=== PATIENT | male | born 1930 | race Caucasian/White ===

== ENCOUNTER 2019-07-05 17:49 | Inpatient (IN) | payer BC, OTHER ==
[~2019-07-05] VITALS: Ht 154.9 cm; Wt 71.7 kg
[~2019-07-05 17:49] MED LIST: ASPI-630 PO; INSU100C4 SQ; INSU100V8 SQ; LOSA1TAB19 PO; METF500T16 PO; OMEP20CA10 PO; SIMV40TA3 PO; TAMS0.4C2 PO
[2019-07-05 18:16] LABS: BASO # 0.1 x10^3/uL (0.0-0.2); BASO % 1 % (0-3); EOS # 0.4 x10^3/uL (0.0-0.7); EOS % 3 % (0-3); HEMATOCRIT 45.5 % (39.0-53.0); HEMOGLOBIN 15.4 g/dL (13.0-17.5); LYMPH # 1.9 x10^3/uL (1.0-4.8); LYMPH % 17 % (24-48); MEAN CORPUSCULAR HEMOGLOBIN 30 pg (25-35); MEAN CORPUSCULAR HGB CONC 34 g/dL (31-37); MEAN CORPUSCULAR VOLUME 89 fL (79-100); MONO # 1.3 x10^3/uL (0.0-1.1); MONO % 11 % (0-9); NEUT # 7.7 x10^3/uL (1.8-7.7); NEUT % 68 % (31-73); PLATELET COUNT 190 x10^3/uL (140-400); RED BLOOD COUNT 5.13 x10^6/uL (4.30-5.70); RED CELL DISTRIBUTION WIDTH 15.2 % (11.5-14.5); WHITE BLOOD COUNT 11.4 x10^3/uL (4.0-11.0)
--- NOTE | 2019-07-05 18:16 | RAD ---
CT CODE STROKE HEAD WO History: Confusion starting at 1720 today, aphasia Comparison: None. Technique: Noncontrast CT imaging was performed of the head. Exposure: One or more of the following individualized dose reduction techniques were utilized for this examination: 1. Automated exposure control 2. Adjustment of the mA and/or kV according to patient size 3. Use of iterative reconstruction technique. Findings: No acute extra-axial or parenchymal hemorrhage is identified. There is no significant intra-axial mass effect, midline shift, or extra-axial fluid collection. 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 There is atherosclerotic calcification of the bilateral carotid siphons and intradural vertebral arteries. There is osec-ek-hmeoptrt lateral and mild third ventriculomegaly although there is generalized atrophy present. The mastoid air cells and the visualized paranasal sinuses are aerated. No acute calvarial abnormality is identified. Impression: 1. There is no evidence of acute intracranial hemorrhage. 2. There is multifocal low-density of the supratentorial parenchyma, nonspecific although more commonly due to chronic microvascular ischemic disease in a patient this age. 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 There is generalized supratentorial atrophy. Findings discussed with Dr. Bearden at 07/05/2019 6:10 PM. FOR INTERNAL CODING PURPOSES RESULT CODE: (C) Electronically signed by: Chong Sanchez MD (07/05/2019 6:13 PM) [facility]
[2019-07-05 18:23] LABS: CALCIUM 9.3 mg/dL (8.5-10.1); CREATININE 1.3 mg/dL (0.7-1.3); GFR 52.1; POTASSIUM 3.8 mmol/L (3.5-5.1)
[2019-07-05 18:25] LABS: PROTHROMBIN TIME PATIENT 12.8 SEC (11.7-14.0)
[2019-07-05 18:30] LABS: ALBUMIN 3.3 g/dL (3.4-5.0); ALBUMIN/GLOBULIN RATIO 0.8 (1.0-1.7); TOTAL BILIRUBIN 0.3 mg/dL (0.2-1.0); TOTAL PROTEIN 7.3 g/dL (6.4-8.2)
[2019-07-05] MEDS ORDERED: CONTRAST GIVEN. MC PRN (19:15)
--- NOTE | 2019-07-05 19:20 | PHYS DOC ---
Past Medical History Past Medical History: CAD, Diabetes-Type II, GERD, High Cholesterol, Hypertension, Kidney Stone, [place] Past Surgical History: Appendectomy, Coronary Bypass Surgery, Other Additional Past Surgical Histo: kidney stone; L Shoulder Alcohol Use: None Drug Use: None Adult General Chief Complaint Chief Complaint: ALTERED MENTAL STATUS HPI HPI Patient is a 89 year old male who presents with confusion and unable to talk. Patient states he mowed the grass and then came inside and does not remember what happened to him to open his eyes and salicylate bilateral acute and asking several questions and answered the question. Patient states he was confused and unable to talk started about 30 minutes prior to arrival to ER and she called 911. Code stroke was activated at arrival of the patient to ER patient was able to talk and his confusion was improved but did not remember the month and his age. Review of Systems Review of Systems Constitutional: Denies fever or chills [] Eyes: Denies change in visual acuity, redness, or eye pain [] HENT: Denies nasal congestion or sore throat [] Respiratory: Denies cough or shortness of breath [] Cardiovascular: No additional information not addressed in HPI [] GI: Denies abdominal pain, nausea, vomiting, bloody stools or diarrhea [] : Denies dysuria or hematuria [] Musculoskeletal: Denies back pain or joint pain [] Integument: Denies rash or skin lesions [] Neurologic: Denies headache, focal weakness or sensory changes [] Endocrine: Denies polyuria or polydipsia [] All other systems were reviewed and found to be within normal limits, except as documented in this note. Current Medications Current Medications Current Medications Medications (Trade) Dose Ordered Sig/Janiya Start Time Stop Time Status Last Admin Dose Admin Aspirin (Children'S Aspirin) 324 mg 1X ONCE 07/05/19 19:45 07/05/19 19:46 DC 07/05/19 19:44 324 MG Info (CONTRAST GIVEN -- Rx MONITORING) 1 each PRN DAILY PRN 07/05/19 19:15 07/07/19 19:14 Iohexol (Omnipaque 350 Mg/ml) 60 ml 1X ONCE 07/05/19 19:30 07/05/19 19:31 DC 07/05/19 19:13 60 ML Allergies Allergies Physical Exam Physical Exam Constitutional: Well developed, well nourished, mild distress, non-toxic appearance. [] HENT: Normocephalic, atraumatic. Eyes: PERRLA, EOMI, conjunctiva normal, no discharge. [] Neck: Normal range of motion, no tenderness, supple, no stridor. [] Cardiovascular: Tachycardia, no murmur [] Lungs & Thorax: Bilateral breath sounds clear to auscultation [] Abdomen: Bowel sounds normal, soft, no tenderness, no masses, no pulsatile masses. [] Skin: Warm, dry, no erythema, no rash. [] Back: No tenderness, no CVA tenderness. [] Extremities: No tenderness, no cyanosis, no clubbing, ROM intact, no edema. [] Neurologic: Alert and oriented X 2, no focal deficits noted, NIH-2 Psychologic: Affect normal, judgement normal, mood normal. [] Current Patient Data Vital Signs Vital Signs Date Time Temp Pulse Resp B/P (MAP) Pulse Ox O2 Delivery O2 Flow Rate FiO2 07/05/19 20:33 102 20 93 07/05/19 17:49 97.3 162/82 (108) Room Air 97.3 Lab Values Laboratory Tests Test 07/05/19 18:00 07/05/19 18:30 White Blood Count 11.4 x10^3/uL (4.0-11.0) H Red Blood Count 5.13 x10^6/uL (4.30-5.70) Hemoglobin 15.4 g/dL (13.0-17.5) Hematocrit 45.5 % (39.0-53.0) Mean Corpuscular Volume 89 fL (79-100) Mean Corpuscular Hemoglobin 30 pg (25-35) Mean Corpuscular Hemoglobin Concent 34 g/dL (31-37) Red Cell Distribution Width 15.2 % (11.5-14.5) H Platelet Count 190 x10^3/uL (140-400) Neutrophils (%) (Auto) 68 % (31-73) Lymphocytes (%) (Auto) 17 % (24-48) L Monocytes (%) (Auto) 11 % (0-9) H Eosinophils (%) (Auto) 3 % (0-3) Basophils (%) (Auto) 1 % (0-3) Neutrophils # (Auto) 7.7 x10^3/uL (1.8-7.7) Lymphocytes # (Auto) 1.9 x10^3/uL (1.0-4.8) Monocytes # (Auto) 1.3 x10^3/uL (0.0-1.1) H Eosinophils # (Auto) 0.4 x10^3/uL (0.0-0.7) Basophils # (Auto) 0.1 x10^3/uL (0.0-0.2) Prothrombin Time 12.8 SEC (11.7-14.0) Prothrombin Time INR 1.0 (0.8-1.1) Activated Partial Thromboplast Time 25 SEC (24-38) Sodium Level 143 mmol/L (136-145) Potassium Level 3.8 mmol/L (3.5-5.1) Chloride Level 104 mmol/L (98-107) Carbon Dioxide Level 28 mmol/L (21-32) Anion Gap 11 (6-14) Blood Urea Nitrogen 18 mg/dL (8-26) Creatinine 1.3 mg/dL (0.7-1.3) Estimated GFR (Cockcroft-Gault) 52.1 BUN/Creatinine Ratio 14 (6-20) Glucose Level 100 mg/dL (70-99) H Calcium Level 9.3 mg/dL (8.5-10.1) Magnesium Level 2.0 mg/dL (1.8-2.4) Total Bilirubin 0.3 mg/dL (0.2-1.0) Aspartate Amino Transferase (AST) 14 U/L (15-37) L Alanine Aminotransferase (ALT) 15 U/L (16-63) L Alkaline Phosphatase 107 U/L (46-116) Creatine Kinase 93 U/L (39-308) Troponin I Quantitative 0.040 ng/mL (0.000-0.055) Total Protein 7.3 g/dL (6.4-8.2) Albumin 3.3 g/dL (3.4-5.0) L Albumin/Globulin Ratio 0.8 (1.0-1.7) L Urine Collection Type Unknown Urine Color Yellow Urine Clarity Clear Urine pH 6.0 Urine Specific [place] 1.010 Urine Protein Negative mg/dL (NEG-TRACE) Urine Glucose (UA) 250 mg/dL (NEG) Urine Ketones (Stick) Negative mg/dL (NEG) Urine Blood Negative (NEG) Urine Nitrite Negative (NEG) Urine Bilirubin Negative (NEG) Urine Urobilinogen Dipstick 0.2 mg/dL (0.2 mg/dL) Urine Leukocyte Esterase Negative (NEG) Urine RBC Occ /HPF (0-2) Urine WBC 0 /HPF (0-4) Urine Bacteria 0 /HPF (0-FEW) Laboratory Tests 07/05/19 18:00 Laboratory Tests 07/05/19 18:00 EKG EKG EKG interpreted by me. EKG at 1755 showed sinus tachycardia at rate of 108, ventricular premature complexes, atrial premature complexes, abnormal left axis deviation, left anterior fascicular block, LVH, Q waves in inferior leads. Radiology/Procedures Radiology/Procedures [][facility] [address] [place] [address] IMAGING REPORT Signed PATIENT: WILTON ALICEA ACCOUNT: [id number] : 1930 LOCATION: ER AGE: 89 SEX: M EXAM STATUS: PRE ER ORD. PHYSICIAN: KELLI TUCKER DO REASON: confusion STARTING AT 17:20 TODAY APHASIA PROCEDURE: CT CODE STROKE HEAD WO CT CODE STROKE HEAD WO History: Confusion starting at 1720 today, aphasia Comparison: None. Technique: Noncontrast CT imaging was performed of the head. Exposure: One or more of the following individualized dose reduction techniques were utilized for this examination: 1. Automated exposure control 2. Adjustment of the mA and/or kV according to patient size 3. Use of iterative reconstruction technique. Findings: No acute extra-axial or parenchymal hemorrhage is identified. There is no significant intra-axial mass effect, midline shift, or extra-axial fluid collection. 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 There is atherosclerotic calcification of the bilateral carotid siphons and intradural vertebral arteries. There is bacx-dz-[id number] lateral and mild third ventriculomegaly although there is generalized atrophy present. The mastoid air cells and the visualized paranasal sinuses are aerated. No acute calvarial abnormality is identified. Impression: 1. There is no evidence of acute intracranial hemorrhage. 2. There is multifocal low-density of the supratentorial parenchyma, nonspecific although more commonly due to chronic microvascular ischemic disease in a patient this age. 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 There is generalized supratentorial atrophy. Findings discussed with Dr. Keyes at 07/05/2019 6:10 PM. FOR INTERNAL CODING PURPOSES RESULT CODE: (C) Electronically signed by: Kyra Baker MD (07/05/2019 6:13 PM) [facility] DICTATED and SIGNED BY: KYRA BAKER MD DATE: 07/05/19 181 [facility] [address] [place], [place] [id number] IMAGING REPORT Signed PATIENT: WILTON ALICEA ACCOUNT: [id number] : 1930 LOCATION: ER AGE: 89 SEX: M EXAM STATUS: REG ER ORD. PHYSICIAN: LACIE KEYES MD REASON: CODE STROKE PROCEDURE: PORTABLE CHEST 1V PORTABLE CHEST 1V INDICATION: Stroke. COMPARISON STUDY: None. FINDINGS: Lungs: Normal lung volume. No pulmonary mass or consolidation. Pleura: No pleural effusion or pneumothorax. Heart and Mediastinum: Normal cardiac size. CABG. Atherosclerotic thoracic aorta. IMPRESSION: No consolidation. Electronically signed by: Kyra Hernandez MD (07/05/2019 7:15 PM) [id number] DICTATED and SIGNED BY: KYRA HERNANDEZ MD DATE: 07/05/[address] [address] IMAGING REPORT Signed PATIENT: WILTON ALICEA ACCOUNT: [id number] : 1930 LOCATION: ER AGE: 89 SEX: M EXAM STATUS: REG ER ORD. PHYSICIAN: LACIE KEYES MD REASON: confusion PROCEDURE: CT ANGIOGRAPHY HEAD AND NECK CTA head and neck History: Confusion, aphasia Technique: After bolus of intravenous contrast, volumetric CT data acquisition was acquired of the head and neck. Multiplanar reconstruction images to include MIP and 3-D reconstruction images are submitted. Exposure: One or more of the following individualized dose reduction techniques were utilized for this examination: 1. Automated exposure control 2. Adjustment of the mA and/or kV according to patient size 3. Use of iterative reconstruction technique. Comparison: CT head exam earlier the same day Any determination of stenosis is based on NASCET criteria. CTA head: Findings: There is venous contamination. Both vertebral arteries constitute the basilar artery. There is visualization of segments of bilateral AICAs, PICAs not well visualized although territories likely supplied by segments of AICAs. There is visualization of segments of bilateral superior cerebellar arteries. No significant posterior communicating arteries are visualized. There is small patent anterior communicating artery. No significant intracranial aneurysm or stenosis is identified. No focal filling defect is identified of the larger intracranial vessels. There is visualization of segments of the major venous sinuses. There is mild right maxillary sinus mucosal thickening. Impression: 1. No focal filling defect is identified of the larger intracranial vessels. No significant intracranial stenosis or aneurysm is identified. Neck CTA: Findings: There are normal anatomic origins of the great vessels. There is some calcified plaque of the bilateral carotid bulbs and proximal external carotid arteries bilaterally without significant stenosis. No dissection flap is identified of the cervical arterial vasculature. There is multilevel cervical facet degenerative change. There is advanced degenerative disc disease C6-7, also spondylosis at this level, probable central canal stenosis at this level about 7 mm although poorly characterized on this exam. There is bilateral C6-7 neural foramina compromise due to facet and uncovertebral degenerative change. There is 0.4 cm nodule of the visualized left upper lobe of the lung, barely included. Impression: 1. No significant stenosis or dissection flap is identified of the cervical arterial vasculature. 2. There is degenerative disc disease and spondylosis greatest at C6-7 at which there is likely central canal stenosis on the order of 7 mm. There is multilevel cervical facet degenerative change. There is degree of neural foramina compromise bilaterally at C6-7. 3. There is a small 0.4 cm left upper lobe pulmonary nodule. If there are increased risk factors for neoplasm, dedicated nonemergent chest CT should be considered to fully evaluate for nodules. Regarding the visualized nodule, optional 12 month follow-up could be performed as per revised Fleischner guidelines if increased risk factors for neoplasm, otherwise no additional follow-up needed if low risk factors. Electronically signed by: Kyra Baker MD (07/05/2019 7:52 PM) [facility] DICTATED and SIGNED BY: KYRA BAKER MD DATE: 07/05/191951 Course & Med Decision Making Course & Med Decision Making Pertinent Labs and Imaging studies reviewed. (See chart for details) Evaluation of patient in ER showed 89-year-old male patient with onset of con fusion and aphasia that improved at arrival to ER. Patient was not a candidate for TPA because low NIH score and improving the symptom. Patient treated with aspirin in ER and plan to admit for observation. Patient requiring admission for further evaluation and treatment. Discussed with Dr. Mcnally who is in agreement with admission. Discussed findings and plan with patient and family, who ack nowledge understanding and agreement. Dragon Disclaimer Dragon Disclaimer This electronic medical record was generated, in whole or in part, using a voice recognition dictation system. Departure Departure Impression: Primary Impression: TIA (transient ischemic attack) Disposition: ADMITTED INPATIENT (1904) Admitting Physician: AIME (Navin Luis accepted admission at 1904) Condition: IMPROVED Referrals: CLAUS BYRNES MD (PCP) NIHSS Stroke Scale NIH Stroke Scale: NIH Stroke Scale Response (Comments) Value Level of Consciousness: 0 Alert/Responsive 0 LOC Questions: 2 Answers neither correct 2 LOC Commands: 0 Performs both tasks 0 Best Gaze: 0 Normal 0 Visual: 0 No visual loss 0 Facial Palsy: 0 Normal, symmetrical 0 Motor - Left Arm 0 No drift 0 Motor - Right Arm 0 No drift 0 Motor - Left Leg 0 No drift 0 Motor: Right Leg 0 No drift 0 Limb Ataxia: 0 Absent 0 Sensory: 0 No loss 0 Best Language: 0 Normal 0 Dysathria: 0 Normal 0 Extinction and Inattention: 0 Normal 0 Total 2 LACIE KEYES MD Jul 05, 2019 19:20
[2019-07-05] MEDS ORDERED: IOHEXOL 350 MG/ML 100 ML VIAL. IV ONE (19:30)
[2019-07-05] MEDS ORDERED: ASPIRIN CHEWABLE 81 MG TABLET. PO ONE (19:45)
--- NOTE | 2019-07-05 19:55 | RAD ---
CTA head and neck History: Confusion, aphasia Technique: After bolus of intravenous contrast, volumetric CT data acquisition was acquired of the head and neck. Multiplanar reconstruction images to include MIP and 3-D reconstruction images are submitted. Exposure: One or more of the following individualized dose reduction techniques were utilized for this examination: 1. Automated exposure control 2. Adjustment of the mA and/or kV according to patient size 3. Use of iterative reconstruction technique. Comparison: CT head exam earlier the same day Any determination of stenosis is based on NASCET criteria. CTA head: Findings: There is venous contamination. Both vertebral arteries constitute the basilar artery. There is visualization of segments of bilateral AICAs, PICAs not well visualized although territories likely supplied by segments of AICAs. There is visualization of segments of bilateral superior cerebellar arteries. No significant posterior communicating arteries are visualized. There is small patent anterior communicating artery. No significant intracranial aneurysm or stenosis is identified. No focal filling defect is identified of the larger intracranial vessels. There is visualization of segments of the major venous sinuses. There is mild right maxillary sinus mucosal thickening. Impression: 1. No focal filling defect is identified of the larger intracranial vessels. No significant intracranial stenosis or aneurysm is identified. Neck CTA: Findings: There are normal anatomic origins of the great vessels. There is some calcified plaque of the bilateral carotid bulbs and proximal external carotid arteries bilaterally without significant stenosis. No dissection flap is identified of the cervical arterial vasculature. There is multilevel cervical facet degenerative change. There is advanced degenerative disc disease C6-7, also spondylosis at this level, probable central canal stenosis at this level about 7 mm although poorly characterized on this exam. There is bilateral C6-7 neural foramina compromise due to facet and uncovertebral degenerative change. There is 0.4 cm nodule of the visualized left upper lobe of the lung, barely included. Impression: 1. No significant stenosis or dissection flap is identified of the cervical arterial vasculature. 2. There is degenerative disc disease and spondylosis greatest at C6-7 at which there is likely central canal stenosis on the order of 7 mm. There is multilevel cervical facet degenerative change. There is degree of neural foramina compromise bilaterally at C6-7. 3. There is a small 0.4 cm left upper lobe pulmonary nodule. If there are increased risk factors for neoplasm, dedicated nonemergent chest CT should be considered to fully evaluate for nodules. Regarding the visualized nodule, optional 12 month follow-up could be performed as per revised Fleischner guidelines if increased risk factors for neoplasm, otherwise no additional follow-up needed if low risk factors. Electronically signed by: Chong Sanchez MD (07/05/2019 7:52 PM) [facility]
[2019-07-05 20:16] LABS: BILIRUBIN,URINE NEGATIVE (NEG); CLARITY,URINE CLEAR; COLOR,URINE YELLOW; NITRITE,URINE NEGATIVE (NEG); PROTEIN,URINE NEGATIVE (NEG-TRACE); UROBILINOGEN,URINE 0.2 mg/dL (0.2 mg/dL)
[2019-07-05 20:28] LABS: BACTERIA,URINE 0 /HPF (0-FEW); RBC,URINE OCC /HPF (0-2); WBC,URINE 0 /HPF (0-4)
[2019-07-05 22:50] VITALS: BP 143/65
[2019-07-06] MEDS: INSULIN GLARGINE SYRINGE. SQ SCH ×2 (01:10→21:02)
[2019-07-06 03:35] VITALS: BP 136/71
--- NOTE | 2019-07-06 06:58 | EKG ---
[facility] [address] [place] [address] Test Date: 2019-07-05 Test Time: 17:55:33 Pat Name: WILTON ALICEA Department: Room: 654 1 Gender: M Carpentry Professional: : 1930 Requested By: LACIE KEYES Order Number: [id number] Reading MD: Ameya Richey MD Measurements Intervals [place] Rate: 108 P: 39 UT: 148 QRS: -62 QRSD: 118 T: 24 QT: 344 QTc: 465 Interpretive Statements SINUS TACHYCARDIA VENTRICULAR PREMATURE COMPLEX(ES) ATRIAL PREMATURE COMPLEX(ES) ABNORMAL LEFT AXIS DEVIATION LEFT ANTERIOR FASCICULAR BLOCK Electronically Signed On 07-06-2019 14:15:31 CDT by Ameya Richey MD
[2019-07-06] MEDS ORDERED: INSU100V31 SQ ×3 (07:18)
[2019-07-06 07:42] VITALS: BP 118/59
[2019-07-06] MEDS ORDERED: FINA5TAB4 PO (10:46)
[2019-07-06] MEDS ORDERED: TIOT18CA IH (10:46)
[2019-07-06] MEDS ORDERED: MONT10TA49 PO (10:46)
[2019-07-06 11:00] VITALS: BP 131/71
[2019-07-06] MEDS: IPRATRPIUM/ALBUTEROL 0.5/2.5MG 3 ML NEBU. NEB SCH ×3 (12:00→20:09)
[2019-07-06] MEDS ORDERED: ASPIRIN CHEWABLE 81 MG TABLET. PO SCH (12:00)
--- NOTE | 2019-07-06 12:20 | SSS ---
ADMIT DATE: 07/05/2019 CHIEF COMPLAINT: Mental status change. HISTORY OF PRESENT ILLNESS: The patient is a pleasant 89-year-old male who developed mental status change yesterday. His states he was staring off into space. He was mowing the grass an hour earlier and was okay. When he got to the ER, he was still a little confused. We did a CAT scan, did not show any acute changes. He has been examined and admitted overnight. This morning, he is being examined on the medical floor where he is now improved and wants to go home. PAST MEDICAL HISTORY: CAD, diabetes, hypertension, hyperlipidemia, GERD, kidney stones, myocardial infarction, appendectomy, coronary bypass surgery, kidney stones, shoulder surgery, dementia. ALLERGIES: SULFA. FAMILY HISTORY: Coronary artery disease. SOCIAL HISTORY: He does not drink, smoke or take drugs. He is retired. He is . MEDICATIONS: Reviewed, please refer to the MRAD. REVIEW OF SYSTEMS: GENERAL: No history of weight change, weakness or fevers. SKIN: No bruising, hair changes or rashes. EYES: No blurred, double or loss of vision. NOSE AND THROAT: No history of nosebleeds, hoarseness or sore throat. HEART: No history of palpitations, chest pain or shortness of breath on exertion. LUNGS: Denies cough, hemoptysis, wheezing or shortness of breath. GASTROINTESTINAL: Denies changes in appetite, nausea, vomiting, diarrhea or constipation. GENITOURINARY: No history of frequency, urgency, hesitancy or nocturia. NEUROLOGIC: Denies history of numbness, tingling, tremor or weakness. PSYCHIATRIC: No history of panic, anxiety or depression. ENDOCRINE: No history of heat or cold intolerance, polyuria or polydipsia. EXTREMITIES: Denies muscle weakness, joint pain, pain on walking or stiffness. PHYSICAL EXAMINATION: VITALS: Within normal limits and are stable. GENERAL: No apparent distress. Alert and oriented. HEENT: Head is normocephalic, atraumatic, pupils were equally round and reactive to light and accommodation. NECK: Supple, no JVD, no thyromegaly was noted. LUNGS: Clear to auscultation in all lung sierra without rhonchi or wheezing. HEART: RRR, S1, S2 present. Peripheral pulses intact, no obvious murmurs were noted. ABDOMEN: Soft, nontender. Positive bowel sounds no organomegaly, normal bowel sounds. EXTREMITIES: Without any cyanosis, clubbing, or edema. Pedal pulses intact, Homans sign is negative. NEUROLOGIC: Normal speech, normal tone. A and O x 3, moves all extremities, no obvious focal deficits. He does not really know the year, but is very much alert and cooperative. His states this is his baseline. PSYCHIATRIC: Normal affect, normal mood. Stable. SKIN: No ulcerations or rashes, good skin turgor, no jaundice. VASCULAR: Good capillary refill, neurovascular bundle appears to be intact. LABORATORY DATA: Hematology is normal other than a white count of 11.4. Electrolytes are normal. CT of the head does not show any acute changes. ASSESSMENT AND PLAN: Resolving mental status change, suspect possible transient ischemic attack. The patient has been admitted, observed overnight. He is doing well this morning. We plan to discharge if okay with Neurology and I have consulted Neurology. DISPOSITION: Home. ACTIVITY: As tolerated. DIET: Low sodium. MEDICATIONS: Please see the MRAD. TOTAL TIME: 32 minutes. WILLIAM AARON DO DR: DAMARIS/joel JOB#: [id number] / [id number]
[2019-07-06] MEDS: FINASTERIDE 5 MG TABLET. PO SCH (12:28)
[2019-07-06] MEDS: PANTOPRAZOLE 40 MG TABLET.DR. PO SCH (12:28)
[2019-07-06] MEDS: TAMSULOSIN 0.4 MG CAP.ER.24H. PO SCH (12:29)
[2019-07-06] MEDS: SIMVASTATIN 40 MG TABLET. PO SCH (12:29)
[2019-07-06] MEDS: INSULIN LISPRO 300 UNITS/3 ML VIAL. SQ SCH (12:35)
--- NOTE | 2019-07-06 15:26 | CARD ---
MR#: [id number] Date of Study: 07/06/2019 Ordering Physician: ISACC ISABEL, Referring Physician: ISACC ISABEL, Tech: Sarahi Balderas RDCS APPROVED REPORT EXAM: Two-dimensional and M-mode echocardiogram with Doppler and color Doppler. Other Information Quality : Good INDICATION Cardiac Disease: CAD Hx: CABG, [place] 2D DIMENSIONS RVDd2.9 (2.9-3.5cm)Left Atrium(2D)3.6 (1.6-4.0cm) IVSd0.8 (0.7-1.1cm)Aortic Root(2D)2.8 (2.0-3.7cm) LVDd4.9 (3.9-5.9cm)LVOT Diameter2.1 (1.8-2.4cm) PWd0.8 (0.7-1.1cm)LVDs3.9 (2.5-4.0cm) FS (%) 20.7 %SV48.0 ml LVEF(%)45.0 (>50%) Aortic Valve AoV Peak Tomy.88.5cm/sAoV VTI15.2cm AO Peak GR.3.1mmHgLVOT Peak Tomy.82.6cm/s LVOT VTI 18.79cmAO Mean GR.2mmHg ROSY (VMAX)3.65kj0QWR (VTI)4.37cm2 Mitral Valve MV E Bxlmfmkn98.1cm/sMV DECEL WIKF080ta MV A Yecfpqdv32.4cm/sMV XFA71tv E/A Ratio0.6MVA (PHT)2.85cm2 TDI E/Lateral E'9.4E/Medial E'14.0 Pulmonary Vein S1 Qmvbopdo85.0cm/sD2 Sdqhvzxr26.5cm/s LEFT VENTRICLE The left ventricle is normal size. There is mild concentric left ventricular hypertrophy. The Ejectio n Fraction is 50%. Mild global hypokinesis. Transmitral Doppler flow pattern is Grade I-abnormal rela xation pattern. RIGHT VENTRICLE The right ventricle is normal size. The right ventricular systolic function is normal. ATRIA The left atrium size is normal. The right atrium size is normal. The interatrial septum is intact wit h no evidence for an atrial septal defect or patent foramen ovale as noted on 2-D or Doppler imaging. AORTIC VALVE The aortic valve is calcified but opens well. Doppler and Color Flow revealed no significant aortic r egurgitation. There is no significant aortic valvular stenosis. MITRAL VALVE The mitral valve is calcified but opens well. There is no evidence of mitral valve prolapse. There is no mitral valve stenosis. Doppler and Color-flow revealed trace mitral regurgitation. TRICUSPID VALVE The tricuspid valve is normal in structure and function. Doppler and Color Flow revealed trace tricus pid regurgitation. There is no tricuspid valve stenosis. PULMONIC VALVE The pulmonic valve is not well visualized. Doppler and Color Flow revealed trace pulmonic valvular re gurgitation. There is no pulmonic valvular stenosis. GREAT VESSELS The aortic root is normal in size. The ascending aorta is normal in size. The IVC was not well visual ized. PERICARDIAL EFFUSION There is no evidence of significant pericardial effusion. Critical Notification Critical Value: No <Conclusion> The Ejection Fraction is 50%. There is mild concentric left ventricular hypertrophy. Mild global hypokinesis. Signed by : Aemya Richey, Electronically Approved : 07/06/2019 15:25:53
--- NOTE | 2019-07-06 15:39 | RAD ---
BRAIN W/O CONTRAST History: Mental status changes. Confusion. Weakness. Technique: Multiplanar, multi sequential MR imaging was performed of the brain without contrast. Comparison: Head CT June 27, 2019 Findings: No acute infarct. No intracranial hemorrhage. No mass effect. There are brain parenchymal volume loss. Prominent lateral ventricles likely related to central brain parenchymal volume loss. No acute hydrocephalus. Moderate to extensive foci of T2/FLAIR hyperintensity within the hemispheric white matter including the sylvia, most often due to chronic microvascular ischemia. 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 Imaged orbits are unremarkable. Imaged paranasal sinuses and mastoid air cells are clear. Impression: 1. No acute intracranial abnormality. 2. Sequela chronic microvascular ischemia brain parenchymal volume loss. 3. 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 Electronically signed by: Connor Ovalle DO (07/06/2019 3:36 PM) [facility]
[2019-07-06 15:50] VITALS: BP 142/67
[2019-07-06] MEDS ORDERED: INSULIN LISPRO 300 UNITS/3 ML VIAL. SQ SCH (17:00)
--- NOTE | 2019-07-06 18:30 | PDOC2 ---
NEUROLOGY CONSULT Date of Admission Date of Admission DATE: 07/06/19 TIME: 18:15 Reason for Consult Reason for Consult: IMPRESSION: Speech arrest on 07/05/19. Confusion. Metabolic encephalopathy. Hypoglycemia. Hyperglycemia. DM. CAD, s/p [place]. HTN. HLD. C-spine stenosis, 7 mm. Lung nodule. 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 No acute CVA this time. RECOMMENDATIONS/PLAN: Continue ASA daily. Continue Zocor HS. Treat medical diseases. FU with PCP. See Pulmonary Medicine for lung nodule. See Neurosurgery for C-spine stenosis. HISTORY OF THE PRESENT ILLNESS: This is an 89-year-old male patient with above medical diseases had an episode of confusion and unable to talk. He mowed the grass on 07/05/19 then came inside but had mental status changes unable to remember what happened pr what he had done. Patient's stated he was confused and unable to talk for about 30 minutes prior to arrival to ER. Code stroke was activated at arrival. He was then able to talk and his confusion was improved but he still had confusion and memory deficits. PAST MEDICAL HISTORY: CAD, Diabetes-Type II, GERD, High Cholesterol, Hypertension, Kidney Stone, [place] PAST SURGERY HISTORY: Appendectomy, Coronary Bypass Surgery, kidney stone; L Shoulder surgery. ALLERGY: NKDA MEDICATIONS: Refer to [facility] FAMILY HISTORY: Non contributory. SOCIAL HISTORY: Lives at home with his . Denies smoking, drinking, and illicit drug use. REVIEW OF SYSTEMS: Constitutional: No malnutrition, weight loss, cachexia. Head: No traumatic brain or head injury. Skin: No edema, or rash. Ear: No infection. Eyes: No vision loss or color blindness. Nose: No bleeding or purulent discharges. Hearing: Hearing decrease. Neck: No injury. Cardiac: [place], CAD, HTN, HLD. Pulmonary: No COPD. GI: GERD. Urinary/genital: UTI. Endocrinologic: Diabetes Mellitus. Skeletomuscular: No muscular atrophy, deformity. Neurological: see HP. Psychiatric: Denies drug use/abuse. Otherwise, not [id number] review of systems. PHYSICAL EXAMINATION: General appearance is in subacute distress. HEENT: Normocephalic and nontraumatic. Eyes, nose, ears, and throat are unremarkable. Neck is supple. No lymphadenopathy. No bruits are heard over the carotid artery. No crepitus. Cardiovascular: S1, S2, regular rate and rhythm. Pulmonary: Clear to auscultation bilaterally. Abdomen: Bowel sounds are positive. Abdomen is soft, nontender, and nondistended. Extremities: No rash, lesions, or edema. No restriction of range of motion NEUROLOGICAL EXAMINATION: Awake. Partially oriented to time, place but knew person. PERRL. EOMI. CN: no focal findings. Muscle tone: within normal. Muscle strength: 5 DTR: 2 Plantar reflex: Flexor response bilaterally Gait: not examined in bed. Sensory exam: no abnormal findings. No cerebellar signs elicited. F-T-N test fine. Current Medications Current Medications Current Medications Iohexol (Omnipaque 350 Mg/ml) 60 ml 1X ONCE IV Last administered on 07/05/19at 19:13; Start 07/05/19 at 19:30; Stop 07/05/19 at 19:31; Status DC Info (CONTRAST GIVEN -- Rx MONITORING) 1 each PRN DAILY PRN MC SEE COMMENTS; Start 07/05/19 at 19:15; Stop 07/07/19 at 19:14 Aspirin (Children'S Aspirin) 324 mg 1X ONCE PO Last administered on 07/05/19at 19:44; Start 07/05/19 at 19:45; Stop 07/05/19 at 19:46; Status DC Insulin Glargine (Lantus Syringe) 30 unit QHS SQ Last administered on 07/06/19at 01:10; Start 07/06/19 at 01:00 Aspirin (Children'S Aspirin) 81 mg DAILY PO Last administered on 07/06/19at 12:35; Start 07/06/19 at 12:00 Finasteride (Proscar) 5 mg DAILY PO Last administered on 07/06/19at 12:35; Start 07/06/19 at 12:00 Insulin Glargine (Lantus Syringe) 30 unit HS SQ ; Start 07/06/19 at 21:00; Stat us Cancel Montelukast Sodium (Singulair) 10 mg HS PO ; Start 07/06/19 at 21:00 Simvastatin (Zocor) 40 mg DAILY PO Last administered on 07/06/19at 12:35; Start 07/06/19 at 12:00 Tamsulosin HCl (Flomax) 0.4 mg DAILY PO Last administered on 07/06/19at 12:35; Start 07/06/19 at 12:00 Insulin Human Lispro (HumaLOG) 11 units DAILY08 SQ ; Start 07/07/19 at 08:00 Insulin Human Lispro (HumaLOG) 17 units DAILYBFRLUN SQ Last administered on 07/06/19at 12:35; Start 07/06/19 at 11:30 Insulin Human Lispro (HumaLOG) 18 units DAILYBFRSUP SQ Last administered on 07/06/19at 17:15; Start 07/06/19 at 17:00 Pantoprazole Sodium (Protonix) 40 mg DAILYAC PO Last administered on 07/06/19at 12:35; Start 07/06/19 at 11:30 Non-Formulary Medication (Tiotropium [place] (Spiriva)) 2 inh HS IH ; Start 07/06/19 at 21:00; Status UNV Albuterol/ Ipratropium (Duoneb) 3 ml RTQID NEB Last administered on 07/06/19at 16:03; Start 07/06/19 at 12:00 Active Scripts Active Reported Spiriva (Tiotropium [place]) 18 Mcg Cap.w.dev 2 Inh IH HS Montelukast Sodium Tablet (Montelukast Sodium) 10 Mg Tablet 10 Mg PO HS Finasteride 5 Mg Tablet 1 Tab PO DAILY Novolog (Insulin Aspart) 100 Unit/1 Ml Vial 18 Unit SQ DAILYBFRSUP Novolog (Insulin Aspart) 100 Unit/1 Ml Vial 17 Unit SQ DAILYBFRLUN Novolog (Insulin Aspart) 100 Unit/1 Ml Vial 11 Unit SQ DAILY08 Lantus (Insulin Glargine,Hum.rec.anlog) 100 Unit/1 Ml Vial 30 Unit SQ HS Novolog (Insulin Aspart) 100 Unit/1 Ml Cartridge 100 Unit SQ Aspirin 81 Mg Tab.chew 81 Mg PO Simvastatin 40 Mg Tablet 40 Mg PO Tamsulosin Hcl 0.4 Mg Cap.er.24h 0.4 Mg PO Omeprazole 20 Mg Capsule.dr 40 Mg PO DAILY Allergies Allergies: Allergies Coded Allergies Type Severity Reaction Last Updated Verified Sulfa (Sulfonamide Antibiotics) Allergy Intermediate 07/06/19 Yes ROS Review of System The patient denies any associated fevers, chills, headache, ear pain, rhinorrhea, sore throat, stiff neck, productive cough, chest pain, shortness of breath, back or flank pain, abdominal pain, nausea, vomiting, diarrhea, constipation, dysuria, rash, numbness, weakness, tingling, incontinence, difficulty ambulating, or diaphoresis. Physical Exam Physical Exam General: Well developed, well nourished, no acute distress, well appearing HEENT: Pupils equally round and reactive to light, EOMI, no discharge, normal conjunctiva Neck: Supple, no nuchal rigidity, no JVD, trachea midline, no tenderness Cardiac: RRR, no murmurs, no gallops, no rubs Chest/Lungs: CTAB, no wheeze, no rhonchi, no crackles Abdomen: soft, non-distended, no guarding, no peritoneal signs, non-tender Back: No tenderness Extremities: no edema, pulses intact, non-tender,capillary refill <3 sec bilateral upper and lower extremities, Neuro: Alert and oriented x 4, no focal deficits, normal speech Vitals Vitals: Vital Signs Date Time Temp Pulse Resp B/P (MAP) Pulse Ox O2 Delivery O2 Flow Rate FiO2 07/06/19 16:04 92 Room Air 07/06/19 15:50 97.7 66 18 142/67 (92) 97.7 Labs Labs Laboratory Tests Test 07/05/19 18:00 07/05/19 18:30 07/05/19 22:02 07/05/19 23:04 White Blood Count 11.4 x10^3/uL (4.0-11.0) Red Blood Count 5.13 x10^6/uL (4.30-5.70) Hemoglobin 15.4 g/dL (13.0-17.5) Hematocrit 45.5 % (39.0-53.0) Mean Corpuscular Volume 89 fL (79-100) Mean Corpuscular Hemoglobin 30 pg (25-35) Mean Corpuscular Hemoglobin Concent 34 g/dL (31-37) Red Cell Distribution Width 15.2 % (11.5-14.5) Platelet Count 190 x10^3/uL (140-400) Neutrophils (%) (Auto) 68 % (31-73) Lymphocytes (%) (Auto) 17 % (24-48) Monocytes (%) (Auto) 11 % (0-9) Eosinophils (%) (Auto) 3 % (0-3) Basophils (%) (Auto) 1 % (0-3) Neutrophils # (Auto) 7.7 x10^3/uL (1.8-7.7) Lymphocytes # (Auto) 1.9 x10^3/uL (1.0-4.8) Monocytes # (Auto) 1.3 x10^3/uL (0.0-1.1) Eosinophils # (Auto) 0.4 x10^3/uL (0.0-0.7) Basophils # (Auto) 0.1 x10^3/uL (0.0-0.2) Prothrombin Time 12.8 SEC (11.7-14.0) Prothromb Time International Ratio 1.0 (0.8-1.1) Activated Partial Thromboplast Time 25 SEC (24-38) Sodium Level 143 mmol/L (136-145) Potassium Level 3.8 mmol/L (3.5-5.1) Chloride Level 104 mmol/L (98-107) Carbon Dioxide Level 28 mmol/L (21-32) Anion Gap 11 (6-14) Blood Urea Nitrogen 18 mg/dL (8-26) Creatinine 1.3 mg/dL (0.7-1.3) Estimated GFR (Cockcroft-Gault) 52.1 BUN/Creatinine Ratio 14 (6-20) Glucose Level 100 mg/dL (70-99) Calcium Level 9.3 mg/dL (8.5-10.1) Magnesium Level 2.0 mg/dL (1.8-2.4) Total Bilirubin 0.3 mg/dL (0.2-1.0) Aspartate Amino Transf (AST/SGOT) 14 U/L (15-37) Alanine Aminotransferase (ALT/SGPT) 15 U/L (16-63) Alkaline Phosphatase 107 U/L (46-116) Creatine Kinase 93 U/L (39-308) Troponin I Quantitative 0.040 ng/mL (0.000-0.055) Total Protein 7.3 g/dL (6.4-8.2) Albumin 3.3 g/dL (3.4-5.0) Albumin/Globulin Ratio 0.8 (1.0-1.7) Urine Collection Type Unknown Urine Color Yellow Urine Clarity Clear Urine pH 6.0 Urine Specific [place] 1.010 Urine Protein Negative mg/dL (NEG-TRACE) Urine Glucose (UA) 250 mg/dL (NEG) Urine Ketones (Stick) Negative mg/dL (NEG) Urine Blood Negative (NEG) Urine Nitrite Negative (NEG) Urine Bilirubin Negative (NEG) Urine Urobilinogen Dipstick 0.2 mg/dL (0.2 mg/dL) Urine Leukocyte Esterase Negative (NEG) Urine RBC Occ /HPF (0-2) Urine WBC 0 /HPF (0-4) Urine Bacteria 0 /HPF (0-FEW) Glucose (Fingerstick) 269 mg/dL (70-99) 253 mg/dL (70-99) Test 07/06/19 07:26 07/06/19 11:15 07/06/19 12:08 07/06/19 17:11 Glucose (Fingerstick) 181 mg/dL (70-99) 217 mg/dL (70-99) 62 mg/dL (70-99) Vitamin B12 Level 276 pg/mL (247-911) Thyroid Stimulating Hormone (TSH) 2.855 uIU/mL (0.358-3.74) Laboratory Tests Test 07/05/19 18:30 07/05/19 22:02 07/05/19 23:04 07/06/19 07:26 Urine Collection Type Unknown Urine Color Yellow Urine Clarity Clear Urine pH 6.0 Urine Specific [place] 1.010 Urine Protein Negative mg/dL (NEG-TRACE) Urine Glucose (UA) 250 mg/dL (NEG) Urine Ketones (Stick) Negative mg/dL (NEG) Urine Blood Negative (NEG) Urine Nitrite Negative (NEG) Urine Bilirubin Negative (NEG) Urine Urobilinogen Dipstick 0.2 mg/dL (0.2 mg/dL) Urine Leukocyte Esterase Negative (NEG) Urine RBC Occ /HPF (0-2) Urine WBC 0 /HPF (0-4) Urine Bacteria 0 /HPF (0-FEW) Glucose (Fingerstick) 269 mg/dL (70-99) 253 mg/dL (70-99) 181 mg/dL (70-99) Test 07/06/19 11:15 07/06/19 12:08 07/06/19 17:11 Vitamin B12 Level 276 pg/mL (247-911) Thyroid Stimulating Hormone (TSH) 2.855 uIU/mL (0.358-3.74) Glucose (Fingerstick) 217 mg/dL (70-99) 62 mg/dL (70-99) ISACC ISABEL MD Jul 06, 2019 18:30
--- NOTE | 2019-07-06 19:46 | EEG ---
DATE OF SERVICE: 07/06/2019 EEG NUMBER: [id number] OBJECTIVE: This is an 89-year-old male patient with symptoms of mental status changes as confusion. EEG was requested to evaluate cerebral activity. METHODS: Twenty electrodes were applied according to the international 10-20 electrode placement system. EKG monitoring, hyperventilation, intermittent photic stimulation, monopolar and bipolar montages are routinely utilized. The record was obtained on a digital system with video monitoring. FINDINGS: 1. Background: The patient was recorded in the awake, drowsy and sleep states. The overall background amplitude is 5-10 microvolts. A posterior dominant rhythm of 6-8 Hz is observed, but most time is in the 7 Hz range. 2. Abnormalities: No specific epileptiform discharge or electrographic seizure is seen. No focal slowing. 3. Activation: Hyperventilation was performed with good efforts and normal response. Intermittent photic stimulation was performed with photic driving. IMPRESSION: This EEG falls into the abnormal category of the study for the awake, drowsy, and sleep states. The posterior dominant rhythm of 7 Hz is mildly slow for age. No focal, lateralizing, specific epileptiform discharge or electrographic seizure is seen. ISACC ISABEL MD DR: Makenzie JOB#: [id number] / [id number] MICAH
[2019-07-06 19:50] VITALS: BP 135/69
[2019-07-06] MEDS ORDERED: MONTELUKAST SODIUM 10 MG TABLET. PO SCH (21:00)
[2019-07-06] MEDS ORDERED: INSULIN GLARGINE SYRINGE. SQ SCH (21:00)
[2019-07-06] MEDS ORDERED: NON FORMULARY ITEM (Tiotropium Bromide (Spiriva) 2 INH) IH SCH (21:00)
[2019-07-06 23:22] VITALS: BP 114/55
[2019-07-07 03:10] VITALS: BP 132/51
[2019-07-07 07:00] VITALS: BP 130/74
[2019-07-07] MEDS: IPRATRPIUM/ALBUTEROL 0.5/2.5MG 3 ML NEBU. NEB SCH ×2 (07:33→12:02)
[2019-07-07] MEDS ORDERED: INSULIN LISPRO 300 UNITS/3 ML VIAL. SQ SCH (08:00)
[2019-07-07] MEDS: PANTOPRAZOLE 40 MG TABLET.DR. PO SCH (08:16)
[2019-07-07] MEDS: SIMVASTATIN 40 MG TABLET. PO SCH (08:17)
[2019-07-07] MEDS: TAMSULOSIN 0.4 MG CAP.ER.24H. PO SCH (08:17)
[2019-07-07] MEDS: FINASTERIDE 5 MG TABLET. PO SCH (08:17)
[2019-07-07] MEDS ORDERED: ASPIRIN CHEWABLE 81 MG TABLET. PO SCH (09:00)
[2019-07-07 11:00] VITALS: BP 155/62
--- NOTE | 2019-07-07 12:26 | PDOC ---
PROGRESS NOTES Assessment Assessment Speech arrest on 07/05/19. Confusion. Metabolic encephalopathy. Hypoglycemia. Hyperglycemia. DM. CAD, s/p [place]. HTN. HLD. C-spine stenosis, 7 mm. Lung nodule. 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 No evidence of acute CVA this time. RECOMMENDATIONS/PLAN: Continue ASA daily. Continue Zocor HS. Treat medical diseases. FU with PCP. See Pulmonary Medicine for lung nodule. See Neurosurgery for C-spine stenosis. HISTORY OF THE PRESENT ILLNESS: This is an 89-year-old male patient with above medical diseases had an episode of confusion and unable to talk. He mowed the grass on 07/05/19 then came inside but had mental status changes unable to remember what happened pr what he had done. Patient's stated he was confused and unable to talk for about 30 minutes prior to arrival to ER. Code stroke was activated at arrival. He was then able to talk and his confusion was improved but he still had confusion and memory deficits. On 07/07/19: he stated doing fine. PAST MEDICAL HISTORY: CAD, Diabetes-Type II, GERD, High Cholesterol, Hypertension, Kidney Stone, [place] PAST SURGERY HISTORY: Appendectomy, Coronary Bypass Surgery, kidney stone; L Shoulder surgery. ALLERGY: NKDA MEDICATIONS: Refer to [facility] FAMILY HISTORY: Non contributory. SOCIAL HISTORY: Lives at home with his . Denies smoking, drinking, and illicit drug use. REVIEW OF SYSTEMS: Constitutional: No malnutrition, weight loss, cachexia. Head: No traumatic brain or head injury. Skin: No edema, or rash. Ear: No infection. Eyes: No vision loss or color blindness. Nose: No bleeding or purulent discharges. Hearing: Hearing decrease. Neck: No injury. Cardiac: [place], CAD, HTN, HLD. Pulmonary: No COPD. GI: GERD. Urinary/genital: UTI. Endocrinologic: Diabetes Mellitus. Skeletomuscular: No muscular atrophy, deformity. Neurological: see HP. Psychiatric: Denies drug use/abuse. Otherwise, not [id number] review of systems. PHYSICAL EXAMINATION: General appearance is in no acute distress. HEENT: Normocephalic and nontraumatic. Eyes, nose, ears, and throat are unremarkable. Neck is supple. No lymphadenopathy. No bruits are heard over the carotid artery. No crepitus. Cardiovascular: S1, S2, regular rate and rhythm. Pulmonary: Clear to auscultation bilaterally. Abdomen: Bowel sounds are positive. Abdomen is soft, nontender, and nondistended. Extremities: No rash, lesions, or edema. No restriction of range of motion NEUROLOGICAL EXAMINATION: Awake. Partially oriented to time, place but knew person. PERRL. EOMI. CN: no focal findings. Muscle tone: within normal. Muscle strength: 5 DTR: 2 Plantar reflex: Flexor response bilaterally Gait: at his baseline normal. Sensory exam: no abnormal findings. No cerebellar signs elicited. F-T-N test fine. Objective Objective Vital Signs Date Time Temp Pulse Resp B/P (MAP) Pulse Ox O2 Delivery O2 Flow Rate FiO2 07/07/19 12:03 99 Room Air 07/07/19 11:00 97.9 95 12 155/62 (93) 97.9 Intake and Output 07/07/19 07:00 Intake Total 1150 ml Balance 1150 ml Intake Oral 1150 ml # Voids 7 Vitals Signs Vitals VS - Last 72 Hours, by Label Date Time Temp Pulse Resp B/P (MAP) Pulse Ox O2 Delivery O2 Flow Rate FiO2 07/07/19 12:03 99 Room Air 07/07/19 11:00 97.9 95 12 155/62 (93) 93 97.9 07/07/19 08:00 Room Air 07/07/19 07:34 96 Room Air 07/07/19 07:00 97.7 107 16 130/74 (92) 96 Room Air 97.7 07/07/19 03:10 98.2 92 18 132/51 (78) 91 Room Air 98.2 07/06/19 23:22 98.2 86 18 114/55 (74) 92 Room Air 98.2 07/06/19 20:10 92 Room Air 07/06/19 20:00 Room Air 07/06/19 19:50 97.8 92 18 135/69 (91) 92 Room Air 97.8 07/06/19 16:04 92 Room Air 07/06/19 15:50 97.7 66 18 142/67 (92) 94 Room Air 97.7 07/06/19 11:00 98.4 81 18 131/71 (91) 97 Room Air 98.4 07/06/19 08:00 Room Air 07/06/19 07:42 98.4 96 18 118/59 (78) 94 Room Air 98.4 Laboratory Laboratory Laboratory Tests Test 07/06/19 17:11 07/06/19 20:53 07/07/19 07:42 Glucose (Fingerstick) 62 mg/dL (70-99) 153 mg/dL (70-99) 116 mg/dL (70-99) Medication Medications Current Medications Aspirin (Children'S Aspirin) 162 mg DAILY PO Last administered on 07/07/19at 08:20; Start 07/07/19 at 09:00 Insulin Glargine (Lantus Syringe) 30 unit HS SQ ; Start 07/06/19 at 21:00; Status Cancel Insulin Human Lispro (HumaLOG) 11 units DAILY08 SQ ; Start 07/07/19 at 08:00 Insulin Human Lispro (HumaLOG) 18 units DAILYBFRSUP SQ Last administered on 07/06/19at 17:15; Start 07/06/19 at 17:00 Montelukast Sodium (Singulair) 10 mg HS PO Last administered on 07/06/19at 21:03; Start 07/06/19 at 21:00 Non-Formulary Medication (Tiotropium [place] (Spiriva)) 2 inh HS IH ; Start 07/06/19 at 21:00; Status UNV Comment Review of Relevant I have reviewed the following items keiko (where applicable) has been applied. ISACC ISABEL MD Jul 07, 2019 12:26
[2019-07-07] MEDS: INSULIN LISPRO 300 UNITS/3 ML VIAL. SQ SCH (12:58)
--- NOTE | 2019-07-07 13:39 | NUR ---
Discharge Note: WILTON ALICEA [address] Discharge instructions and discharge home medications reviewed with Patient and a copy given. All questions have been answered and understanding verbalized. The following instructions and handouts were given: FOLLOW UP INSTRUCTIONS, MEDICATION LISTS, AND ACTIVITY LEVELS. Discontinued lines and drains: Peripheral IV DISCONTINUED AND CATHETER intact. Patient discharged to Home or Self Care with Family Member via Wheelchair
--- NOTE | 2019-07-07 13:47 | PDOC ---
[facility] PROGRESS NOTE Chief Complaint Chief Complaint Mental status change CAD Diabetes Hypertension Hyperlipidemia GERD Kidney stones Myocardial infarction Appendectomy Coronary bypass surgery, Shoulder surgery Dementia. History of Present Illness History of Present Illness 07/07/19 Pt seen and examined at bedside; pt's is with him today Pt sitting off bed and expresses readiness to go home. Vitals/I&O Vitals/I&O: Vital Signs Date Time Temp Pulse Resp B/P (MAP) Pulse Ox O2 Delivery O2 Flow Rate FiO2 07/07/19 12:03 99 Room Air 07/07/19 11:00 97.9 95 12 155/62 (93) 97.9 I & O 07/06/19 07/06/19 07/07/19 14:59 22:59 06:59 Intake Total 400 ml 350 ml 400 ml Balance 400 ml 350 ml 400 ml Physical Exam General: Alert, Oriented X3, Cooperative Heart: Regular rate, Normal S1 Lungs: Clear Abdomen: Normal bowel sounds, Soft, No tenderness, No masses Extremities: No clubbing, No cyanosis Skin: No rashes, No significant lesion Labs Labs: Laboratory Tests Test 07/06/19 17:11 07/06/19 20:53 07/07/19 07:42 07/07/19 12:41 Glucose (Fingerstick) 62 mg/dL (70-99) 153 mg/dL (70-99) 116 mg/dL (70-99) 246 mg/dL (70-99) Review of Systems Review of Systems: Denies vision change Denies headache Assessment and Plan Assessmemt and Plan Problems Medical Problems: (1) CAD (coronary artery disease) Status: Chronic (2) Cervical spinal stenosis Status: Chronic (3) DM2 (diabetes mellitus, type 2) Status: Chronic (4) HLD (hyperlipidemia) Status: Chronic (5) HTN (hypertension) Status: Chronic (6) Metabolic encephalopathy Status: Acute (7) TIA (transient ischemic attack) Status: Acute Assessment Mental status change CAD Diabetes Hypertension Hyperlipidemia GERD Kidney stones Myocardial infarction Appendectomy Coronary bypass surgery, Shoulder surgery Dementia Plan Pt is at baseline today- D/C today if cleared by neuro Continue home meds PT/OT DVT prophylaxis F/U with PCP Comment Review of Relevant I have reviewed the following items keiko (where applicable) has been applied. Medications: Current Medications Medications (Trade) Dose Ordered Sig/Janiya Route PRN Reason Start Time Stop Time Status Last Admin Dose Admin Montelukast Sodium (Singulair) 10 mg HS PO 07/06/19 21:00 07/06/19 21:03 Insulin Human Lispro (HumaLOG) 18 units DAILYBFRSUP SQ 07/06/19 17:00 07/06/19 17:15 Aspirin (Children'S Aspirin) 162 mg DAILY PO 07/07/19 09:00 07/07/19 08:20 WILLIAM AARON III DO Jul 07, 2019 13:47
== END 2019-07-07 13:30 | disposition home or self-care (01) | DRG 69 ==
LOC: ER 17:49 → ED HOLD 20:42 → 6 SOUTH 22:35
PROVIDERS: ADMIT Internal Medicine; ATTEND Internal Medicine
PROC: 4A00X4Z Measurement of Central Nervous Electrical Activity, External Approach (ICD-10-PCS; principal; 2019-07-06)
DX: G45.9 Transient cerebral ischemic attack, unspecified (principal); G93.41 Metabolic encephalopathy; R47.01 Aphasia; E11.65 Type 2 diabetes mellitus with hyperglycemia; Z87.442 Personal history of urinary calculi; K21.9 Gastro-esophageal reflux disease without esophagitis; I25.10 Atherosclerotic heart disease of native coronary artery without angina pectoris; I10 Essential (primary) hypertension; N20.0 Calculus of kidney; R91.1 Solitary pulmonary nodule; M48.02 Spinal stenosis, cervical region; M47.812 Spondylosis without myelopathy or radiculopathy, cervical region; M50.30 Other cervical disc degeneration, unspecified cervical region; F03.90 Unspecified dementia, unspecified severity, without behavioral disturbance, psychotic disturbance, mood disturbance, and anxiety; E78.5 Hyperlipidemia, unspecified; E78.00 Pure hypercholesterolemia, unspecified; Z95.1 Presence of aortocoronary bypass graft; Z90.49 Acquired absence of other specified parts of digestive tract; I25.2 Old myocardial infarction; Z82.49 Family history of ischemic heart disease and other diseases of the circulatory system; Z88.2 Allergy status to sulfonamides
CPT/HCPCS: 36415; 70450; 70496; 70498; 70551; 71045; 80053; 81001; 82550; 82607; 82962; 83735; 84443; 84484; 85025; 85610; 85730; 93005; 93306; 94640; 95816; J1815; J7620; Q9967; 99285-25; G0378

== ENCOUNTER → 2019-08-11 | Outpatient (CLI) | payer BC ==
[~2019-08-11] MED LIST changes: +FINA5TAB4 PO; +INSU100V31 SQ; +MONT10TA49 PO; +SIMV40TA18 PO; -SIMV40TA3 PO; +TIOT18CA IH
--- NOTE | 2019-08-11 16:00 | KCIC ---
MRI of the cervical spine without contrast 08/11/2019 CLINICAL HISTORY: Worsening neck pain. TECHNIQUE: Unenhanced T1-weighted, T2-weighted and inversion recovery sagittal and gradient echo and T2-weighted axial images of the cervical spine were obtained. FINDINGS: Mild lateral curvature of the cervical spine is seen convex to the right. There is straightening of the normal cervical lordosis. Degenerative signal changes are seen involving all of the disks of the cervical spine. Degenerative signal changes are seen within the marrow surrounding these discs. Loss of height of the C6-7 disc is noted. No area of abnormal signal intensity is seen involving the cervical spinal cord. At the C2-3 disc space there is a minimal generalized disc bulge. Degenerative changes are seen involving the uncovertebral and facet joints bilaterally. These findings do not result in significant central spinal canal or neural foraminal stenosis. At the C3-4 disc space there is a mild generalized disc bulge. Degenerative changes are seen involving the uncovertebral and facet joints, right greater than left. These findings efface the anterior posterior CSF resulting in mild central spinal canal stenosis without evidence of cord impingement. Mild right neural foraminal stenosis is seen. The left neural foramen is patent. At the C4-5 disc space there is a mild generalized disc bulge. Degenerative changes are seen involving the uncovertebral and facet joints bilaterally. These findings efface the anterior and posterior CSF resulting in mild central spinal canal stenosis without evidence of cord impingement. Mild bilateral neural foraminal stenosis is seen. At the C5-6 disc space there is a mild generalized disc bulge. Degenerative changes are seen involving the uncovertebral and facet joints, right greater than left. These findings when combined efface the anterior and posterior CSF resulting in mild central spinal canal stenosis without evidence of cord impingement. Mild right neural foraminal stenosis is seen. The left neural foramen is patent. At the C6-7 disc space there is a mild generalized disc bulge. This is eccentric to the left. Degenerative changes are seen involving the uncovertebral and facet joints, left greater than right. These findings when combined efface the anterior CSF resulting in mild central spinal canal stenosis without evidence of cord impingement. Moderate left neural foraminal stenosis is seen. The right neural foramen is patent. At the C7-T1 disc space there is a minimal generalized disc bulge. Degenerative changes are seen involving the facet joints bilaterally. These findings when combined do not result in significant central spinal canal or neural foraminal stenosis. 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 These findings result in mild central spinal canal stenosis without evidence of cord impingement at C3-4, C4-5, C5-6 and C6-7. Mild right neural foraminal stenosis is seen at C3-4 and C5-6. Mild bilateral neural foraminal stenosis is seen at C4-5. Moderate left neural foraminal stenosis is seen at C6-7. Electronically signed by: Jordy Stevens MD (08/11/2019 3:57 PM) [id number]
== END | disposition home or self-care (01) ==
LOC: KCIC MRI 10:33
PROVIDERS: ATTEND Internal Medicine
DX: M47.812 Spondylosis without myelopathy or radiculopathy, cervical region (principal); M48.02 Spinal stenosis, cervical region
CPT/HCPCS: 72141